=== PATIENT | female | born 1970 | race Caucasian/White ===

== ENCOUNTER 2021-05-11 19:48 | Emergency (ER) | payer SELFPAY ==
[~2021-05-11] VITALS: Ht 160 cm; Wt 91.0 kg
[2021-05-11] MEDS ORDERED: ACETAMINOPHEN 325MG TABLET PO STA (20:37)
[2021-05-11] MEDS ORDERED: MAGNESIUM/ALUMINUM HYDROXIDE/SIMETHICONE 30ML UDC PO ONE (20:45)
[2021-05-11] MEDS ORDERED: FAMOTIDINE 20MG TABLET PO ONE (20:45)
[2021-05-12] MEDS: MAGNESIUM/ALUMINUM HYDROXIDE/SIMETHICONE 30ML UDC PO NR (00:53)
[2021-05-12] MEDS: FAMOTIDINE 20MG TABLET PO NR (00:53)
[2021-05-12] MEDS: ACETAMINOPHEN 325MG TABLET PO NR (00:53)
[2021-05-12 01:02] LABS: BASOPHILS % 0.9 % (0.0-2.0); HEMATOCRIT. 35.3 % (36.0-48.0); HEMOGLOBIN. 10.9 g/dL (12.0-16.0); LYMPHOCYTES % 38.2 % (20.0-50.0); MEAN CORPUSCULAR HEMOGLOBIN 22.4 pg (28.0-32.0); MEAN CORPUSCULAR VOLUME 72.4 fL (81.0-99.0); MEAN PLATELET VOLUME 10.2 fl (7.4-10.4); MONOCYTES % 6.1 % (2.0-8.0); NEUTROPHILS % 52.8 % (40.0-76.0); PLATELET 243 x1000/uL (130-400); RED BLOOD CELL COUNT 4.88 mill/uL (4.2-5.4)
[2021-05-12 01:08] LABS: CHLORIDE 110 mEq/L (98-107)
[2021-05-12 03:00] VITALS: BP 135/75
== END 2021-05-12 04:00 | disposition home or self-care (01) ==
LOC: ER 19:48
DX: R07.89 Other chest pain (principal); R73.9 Hyperglycemia, unspecified; Z88.8 Allergy status to other drugs, medicaments and biological substances; Z68.35 Body mass index [BMI] 35.0-35.9, adult
CPT/HCPCS: 36415; 71045; 80053; 84484; 85025; 93005; 99285